=== PATIENT | female | born 1945 | race Caucasian/White ===

== ENCOUNTER 2016-12-17 08:25 | Inpatient (IN) | payer OTHER, MEDICARE ==
[~2016-12-17] VITALS: Ht 157.5 cm; Wt 71.5 kg
[~2016-12-17 08:25] MED LIST: AMLO10TA2 PO; ASPI81CH CHEW; CALC250T PO; METF1000 PO; OMEP10CA PO; ZETI10TA5 PO
--- NOTE | 2016-12-17 08:34 | MH ---
cc: ORION MCKEON M.D. DATE OF ADMISSION: 12/17/2016 ADMISSION DIAGNOSIS Left hip osteoarthritis. HISTORY This is a 71-year-old female with significant left hip arthritis. Investigative studies are consistent with extensive arthritis of the left hip. The patient has findings suggestive of avascular closes. Despite conservative care the patient is painful and symptomatic. She presents for surgical treatment. PAST MEDICAL HISTORY, SOCIAL HISTORY, FAMILY HISTORY, REVIEW OF SYSTEMS See attached notes. PHYSICAL EXAMINATION GENERAL: A 71-year-old female in moderate distress with her left hip. HEENT: Normocephalic, atraumatic. Pupils equal, round, reactive to light and accommodation. Extraocular motions intact. NECK: Supple. CHEST: Clear. HEART: Regular rate and rhythm. ABDOMEN: Soft, nontender with normoactive bowel sounds. MUSCULOSKELETAL EXAMINATION: Left hip - Pain with range of motion especially with internal and external rotation and mild flexion contracture. Neurologic and vascular examination is within normal limits. IMPRESSION Osteoarthritis left hip. PLAN Left total hip replacement plasty, direct anterior exposure. CONSENT There are risks with surgery including infection, bleeding, loss of motion, continued pain, need for further surgery, neurologic and vascular injury. The patient understands these issues and wishes to press on with surgery as outlined above. MD THIERRY Parker/JAIMEE /11:19 PM /8:29 AM
[2016-12-17] MEDS ORDERED: SODIUM CHLORID 0.9% 500 ML IV PRN (09:45)
[2016-12-17] MEDS ORDERED: POVIDONE IODINE 5% (ANTISEPSIS KIT) 4 APPLICATIONS EACH NARE PRN (09:45)
[2016-12-17] MEDS ORDERED: METOPROLOL TARTRATE 25 MG TAB PO PRN (09:45)
[2016-12-17] MEDS ORDERED: EXPAREL PERI-ARTICULAR INJECTION (TOTAL VOL. 60 ML) P-ARTICULR SCH ×2 (09:45)
[2016-12-17] MEDS ORDERED: VANCOMYCIN 1000 MG/NS 250 ML (for <70 kg) IV SCH ×2 (09:45)
[2016-12-17] MEDS ORDERED: INSULIN HUMAN REGULAR 1,000 UNITS/10 ML VIAL SQ PRN (09:45)
[2016-12-17] MEDS ORDERED: CHLORHEXIDINE GLUCONATE 2 % 1 PACK (2 CLOTHS) TOPICAL PRN (09:45)
[2016-12-17] MEDS ORDERED: LACTATED RINGER'S 1000 ML IV PRN (09:45)
[2016-12-17] MEDS ORDERED: POVIDONE IODINE 7.5% SCRUB 118 ML BOTTLE TOPICAL SCH (09:45)
[2016-12-17] MEDS ORDERED: ceFAZolin 2 GM PREMIX 50 ML IV SCH (09:45)
[2016-12-17] MEDS ORDERED: TRANEXAMIC ACID INJ 705 MG in SODIUM CHLORIDE 0.9% INJ 100 ML IV SCH (10:00)
[2016-12-17] MEDS ORDERED: GENTAMICIN SULFATE 80 MG/2 ML VIAL ONE (10:38)
[2016-12-17] MEDS ORDERED: NALOXONE HCL 0.4 MG/ML AMP IV PUSH PRN (13:30)
[2016-12-17] MEDS ORDERED: MISCELLANEOUS PHARMACY INFORMATION XX ONE (13:30)
[2016-12-17] MEDS ORDERED: ACETAMINOPHEN/HYDROcodone 325 MG/7.5 MG TAB PO PRN (13:30)
[2016-12-17] MEDS ORDERED: SODIUM CHLORIDE 0.9% FLUSH 5 ML FLUSH IVF PRN (13:30)
[2016-12-17] MEDS ORDERED: MORPHINE SULFATE 8 MG/ML INJ IM PRN (13:30)
[2016-12-17] MEDS ORDERED: Post-op Orders (for Pharmacy) MISC XX ONE (13:30)
[2016-12-17] MEDS ORDERED: MORPHINE SULFATE 30 MG/30 ML PCA IV SCH (13:30)
[2016-12-17] MEDS ORDERED: MISCELLANEOUS NURSING INFORMATION XX PRN (13:30)
--- NOTE | 2016-12-17 13:33 | PD.OP ---
cc: Usman Reyna MD Operative Report Date of Surgery: Dec 17, 2016 Preoperative Diagnosis: Osteoarthritis left hip, severe. Avascular necrosis left Postoperative Diagnosis: Same Procedure: Left total hip replacement arthroplasty, direct anterior exposure Anesthesia: Gen. Surgeon: Usman Reyna Operating Room Technologist(s): AMINATA Zamora Operation and Findings: EBL: 300cc INDICATION: This patient presents with significant hip pain related to severe inflammatory changes of the left hip and findings of significant flattening and dissolution of the femoral head, consistent with avascular necrosis. Despite extensive conservative care this patient continues to be painful and now presents for surgical treatment. NOTE: Chiquis Zamora PA-C was present for the entire surgical procedure as my plumber assistant. In my medical opinion her skill and care was necessary for the proper management of this patient. COMPONENTS: COMPANY: [employer] CUP: [place], 48, 100 series, gription surface LINER: Altrx 32, neutral STEM: [place], standard offset, size 13, hydroxyapatite-coated HEAD: Metal, 32, +5 neck length, 12/14 taper PROCEDURE: This patient was brought to the operating room and anesthetized in the supine position and positioned on the fracture table with both legs held extended. The left hip and leg was scrubbed with alcohol followed by Hibiclens followed by ChloraPrep and draped sterilely. Antibiotics were given within routine time window and a timeout was done. A 4 inch incision was made starting 2 cm distal and 2 cm lateral to the anterior superior iliac spine. The fascia adam was opened longitudinally. The interval between the fascia adam and the rectus was opened down to the capsule of the hip joint. Retractors were positioned allowing good visualization of the capsule. This was opened longitudinally and flaps were created. Stay sutures were utilized. Exposure was excellent. The neck was cut at the proper location using fluoroscopy as a guide. The head was removed. Deep retractors were positioned allowing good visualization of the acetabulum. Acetabulum was deepened down to the floor starting with a proper size reamer and reaming up to 47 mm. A trial was utilized. Fluoroscopy was used to check position and confirmed satisfactory alignment. The rim was reamed with a 48 mm reamer and the final cup was positioned in approximately 20 of anteversion and 40-45 of abduction. Position was satisfactory. A single hole eliminator was positioned followed by the final liner. The lifting hook was utilized. The leg was dropped to the floor, maximally externally rotated and brought across the midline. Retractors were positioned. A box osteotome was utilized followed by progressive broaching to the proper stem size. Trial reduction showed excellent alignment and fit. With 60 of external rotation the leg was dropped to the floor without evidence of anterior subluxation. The wound was irrigated. The final stem was inserted and was found to be very stable. The final reduction using the final head. Stability was as previously noted. Intraoperative x-rays were taken. The wound was irrigated copiously. Hemostasis was controlled. Local anesthesia was utilized. The capsule was repaired with #2 Tycron sutures. The fascia adam was repaired with running 0 PDS on a loop. Subcutaneous tissue was approximated with 2-0 Vicryl and skin with running intradermal 3-0 Vicryl followed by Steri-Strips. A sterile dressing was applied. The patient was awakened and taken to the recovery room in satisfactory condition. FINDINGS: There was severe erosion of the femoral head. We cut it on the back table and it had a classic appearance of avascular necrosis with a necrotic area of the central portion of the head which was loose. It was severe inflammatory changes was some evidence of erosion of acetabular bone stock. This forced us to placing the hip in a slightly high hip center position. This was accommodated for by femoral stem position. Usman Reyna MD Dec 17, 2016 13:33
[2016-12-17] MEDS ORDERED: GLUCAGON 1 MG/ML VIAL OTHER PRN (13:45)
[2016-12-17] MEDS ORDERED: DEXTROSE 50% IN WATER 50 ML VIAL(D50) IV PUSH PRN (13:45)
[2016-12-17] MEDS ORDERED: XARE10TA PO (13:46)
[2016-12-17] MEDS ORDERED: HYDR-3580 PO (13:46)
[2016-12-17] MEDS ORDERED: DO NOT ADM ANY ANTICOAGULANT DRUGS PRN (13:53)
[2016-12-17] MEDS: PCA - TOTAL MG MORPHINE DELIVERED PER SHIFT SCH ×2 (14:00→22:00)
[2016-12-17] MEDS ORDERED: *morphine SULFATE 8 MG/ML PERIprocedure ONLY ONE ×2 (14:03→14:21)
--- NOTE | 2016-12-17 14:58 | EKG ---
Date Performed: 12/17/2016 Time Performed: 09:01:05 PTAGE: 71 years EKG: Sinus rhythm LOW QRS VOLTAGE IN PRECORDIAL LEADS POSSIBLE RIGHT VENTRICULAR CONDUCTION DELAY BORDERLINE ECG NO PREVIOUS TRACING DOCTOR: [place] Interpretating Date/Time 12/17/2016 14:54:51
[2016-12-17] MEDS: LACTATED RINGER'S 1000 ML INJ 1,000 ML IV SCH ×3 (15:15→23:39)
[2016-12-17] MEDS ORDERED: DEXTROSE 50% IN WATER 50 ML SYRINGE IV PUSH PRN (15:15)
[2016-12-17] MEDS: INSULIN NovoLIN REGULAR SUPPLEMENTAL SCALE SQ SCH ×2 (17:00→20:43)
[2016-12-17 17:45] VITALS: BP 140/75; PULSE 85; RESP 18; TEMP 95.9; O2SAT 95
[2016-12-17] MEDS: metFORMIN HCL 500 MG TAB PO SCH (17:52)
[2016-12-17 18:56] VITALS: BP 155/93; PULSE 82; RESP 18; TEMP 97.2
--- NOTE | 2016-12-17 19:08 | RADRPT ---
EXAM DATE/TIME: 12/17/2016 12:17 [facility] COMPARISON: No previous studies available for comparison. INDICATIONS : Placement of total left hip. MEDICAL HISTORY : None. SURGICAL HISTORY : None. ENCOUNTER: Initial ACUITY: 1 day PAIN SCORE: Non-responsive. LOCATION: Left Hip. FINDINGS: Total hip arthroplasty is in place. The femoral and acetabular components appear intact. CONCLUSION: Intact total hip prosthesis for jacqueline. Ruslan Parr MD on December 17, 2016 at 19:06 Board Certified Radiologist. This report was verified electronically.
[2016-12-17 19:49] VITALS: O2SAT 95
[2016-12-17] MEDS: MAGNESIUM HYDROXIDE SUSP 30 ML CUP PO SCH (20:42)
[2016-12-17] MEDS: SENNOSIDES 8.6 MG TAB PO SCH (20:42)
[2016-12-17] MEDS: SODIUM CHLORIDE 0.9% FLUSH 5 ML FLUSH IVF SCH (20:43)
[2016-12-18] VITALS (7 sets, daily range): BP systolic 120–159; BP diastolic 58–78; PULSE 84–114; RESP 16–18; TEMP 97–99.1; O2SAT 92–99
[2016-12-18] MEDS: ACETAMINOPHEN/HYDROcodone 325 MG/7.5 MG TAB PO PRN ×4 (04:22→17:23)
[2016-12-18] MEDS: PCA - TOTAL MG MORPHINE DELIVERED PER SHIFT SCH ×2 (06:00→13:06)
[2016-12-18 07:23] LABS: HEMATOCRIT 29.7 % (35.0-46.0); REVIEW FLAG FINAL
[2016-12-18] MEDS: PANTOPRAZOLE SOD 20 MG DELAYED RELEASE TAB PO SCH (07:31)
[2016-12-18] MEDS: EZETIMIBE 10 MG TAB PO SCH (07:31)
[2016-12-18] MEDS: metFORMIN HCL 500 MG TAB PO SCH ×2 (07:31→17:53)
[2016-12-18] MEDS: MAGNESIUM HYDROXIDE SUSP 30 ML CUP PO SCH ×2 (07:35→20:44)
[2016-12-18] MEDS: INSULIN NovoLIN REGULAR SUPPLEMENTAL SCALE SQ SCH ×4 (07:36→20:39)
[2016-12-18] MEDS: SODIUM CHLORIDE 0.9% FLUSH 5 ML FLUSH IVF SCH ×2 (07:40→20:44)
--- NOTE | 2016-12-18 09:16 | HHI.DCPOC ---
Discharge Care Plan Diagnosis: (1) Avascular necrosis of bone of left hip (2) Osteoarthritis of left hip Your Health Problems Are: Incision/Drains Swelling Goals to Promote Your Health * To prevent worsening of your condition and complications * To maintain your health at the optimal level Directions to Meet Your Goals Take your medications as prescribed Follow your dietary instruction Follow activity as directed Keep your appointments as scheduled Take your immunizations and boosters as scheduled If your symptoms worsen call your PCP, if no PCP go to Urgent Care Center or Emergency Room Smoking is Dangerous to Your Health. Avoid second hand smoke Call the 24-hour hour crisis hotline for domestic abuse at Jane Del Castillo Dec 18, 2016 09:16
--- NOTE | 2016-12-18 09:19 | HHI.DS ---
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 CBC/BMP: 12/18/16 0528 Significant Findings Laboratory Tests Test 12/18/16 05:28 Hemoglobin 10.0 GM/DL (11.6-15.3) Hematocrit 29.7 % (35.0-46.0) Hospital Course Surgical treatment was performed on the day of admission without complication. She recovered well in PACU and was transferred to the orthopaedic floor. Pain was controlled with IV and oral medications. DVT prophylaxis was initiated pod# 1 with xarelto. She was compliant with physical therapy and all PRASHANTH restrictions. After 3 days she was found to be stable and discharged to a [place] [facility] facility. She was instructed to continue physical therapy, avoid dressing changes unless saturated, and to pursue a high fiber diet for 3- 5 days. She was given a prescriptions of xarelto 10mg and [place] 7.5mg to be filled outpatient Pt Condition on Discharge: Stable Discharge Disposition: Discharge to SNF Discharge Instructions Diet Instructions: Diabetic Diet Activities You Can Perform: Weight Bearing as [place] Activities to Avoid: Strenuous Activity Additional Activity Instruc.: Anterior PRASHANTH protocol New Medications: Adjustable Commode 3-in-1 (Adjustable Commode 3-in-1) 1 Mis Mis EA .ROUTE DIRECTED, #1 Walker with Front Wheels (Walker with Front Wheels) 1 Mis Mis EA .ROUTE DIRECTED, #1 0 Refills Hydrocodone-Acetaminophen (Hydrocodone-Acetaminophen) 7.5-325 mg Tab 1 TAB PO Q4H PRN for pain, #50 TAB Rivaroxaban (Xarelto) 10 Mg Tab 10 MG PO Q24H for Prevent Blood Clot, #25 TAB Continued Medications: Amlodipine (Amlodipine) 10 Mg Tab 10 MG PO DAILY for Blood Pressure Management, #30 TAB 0 Refills Calcium Citrate (Calcium Citrate) 250 Mg Calcium Tab 125 MG PO BID for Calcium Supplement, TAB 0 Refills Ezetimibe (Zetia) 10 Mg Tab 5 MG PO DAILY, #30 TAB 0 Refills Metformin (Metformin) 1,000 Mg Tab 1000 MG PO BIDPC for Blood Sugar Management, #60 TAB 0 Refills Omeprazole (Omeprazole) 10 Mg Cap 10 MG PO DAILY, #30 CAP 0 Refills Discontinued Medications: Aspirin (Aspirin) 81 Mg Chew 81 MG CHEW DAILY, TAB 0 Refills Jane Del Castillo Dec 18, 2016 09:19
[2016-12-18] MEDS ORDERED: WALKER WHEELS/F1 MIS (09:20)
[2016-12-18] MEDS ORDERED: ADJUSTABLE COMM1 MIS (09:20)
--- NOTE | 2016-12-18 11:58 | PD.ORT.PN ---
Subjective Subjective Remarks Doing well. Moderate left hip pain but controlled with IV and po meds. No complaints or radiating leg pain. Did well with PT this morning. Though she feels she is doing well she has no one at home to help her and is considering SNF. No complaints of CP, SOB or abd pain. Objective Vitals Vital Signs Date Time Temp Pulse Resp B/P (MAP) Pulse Ox O2 Delivery O2 Flow Rate FiO2 12/18/16 11:07 97.5 96 17 120/58 (78) 95 12/18/16 06:00 18 12/18/16 04:00 99.1 91 16 150/74 (99) 94 12/18/16 00:00 98.0 84 17 159/78 (105) 92 12/18/16 00:00 98.0 84 17 159/78 (105) 92 12/17/16 22:00 17 12/17/16 19:49 95 Nasal Cannula 2.00 12/17/16 18:56 97.2 82 18 155/93 (113) 12/17/16 17:45 95.9 85 18 140/75 (96) 95 12/17/16 16:45 97.8 79 16 163/81 (108) 95 Nasal Cannula 2 12/17/16 16:30 79 16 160/75 (103) 95 Nasal Cannula 2 12/17/16 16:00 77 15 143/70 (94) 95 Nasal Cannula 2 12/17/16 15:30 77 15 149/69 (95) 95 Nasal Cannula 2 12/17/16 15:15 15 12/17/16 15:00 76 15 155/75 (101) 95 Nasal Cannula 2 12/17/16 14:45 78 17 155/72 (99) 95 Nasal Cannula 2 12/17/16 14:30 76 16 160/78 (105) 95 Nasal Cannula 2 12/17/16 14:15 62 16 159/69 (99) 95 Nasal Cannula 2 12/17/16 14:00 54 16 143/64 (90) 95 Nasal Cannula 2 12/17/16 13:57 97.5 53 15 126/91 (103) 95 Nasal Cannula 2 I/O 12/17/16 12/17/16 12/17/16 12/18/16 12/18/16 12/18/16 07:00 15:00 23:00 07:00 15:00 23:00 Intake Total 1200 ml 958 ml 2083 ml Output Total 550 ml 0 ml Balance 650 ml 958 ml 2083 ml Intake Oral 720 ml 480 ml IV Total 238 ml 1603 ml Other 1200 ml Output Urine Total 450 ml 0 ml Estimated Blood Loss 100 ml # Voids 2 3 # Bowel Movements 0 0 Result Diagram: 12/18/16 0528 Procedures Left total hip arthroplasty, direct anterior approach Objective Remarks Sitting up in chair NAD VSS LLE Hip dressing c/d/i, no significant drainage, no erythema, mild swelling thigh supple, neg homans sign +motor at distal, +sens, +nvi Assessment & Plan Ortho Post Op Day #: 1 Problem List: (1) Osteoarthritis of left hip ICD Codes: M16.12 - Unilateral primary osteoarthritis, left hip Qualifiers: Qualified Codes: M16.12 - Unilateral primary osteoarthritis, left hip (2) Avascular necrosis of bone of left hip ICD Codes: 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 D/C [facility] - change to po pain meds. On norco 7.5mg Hold dressing changes. Do not change unless saturated. PT - WBAT LLE. Anterior prashanth precautions. Walker as needed. Xarelto 10mg qd for 4 weeks. D/C planning, SNF friday. DME written. Jane Del Castillo Dec 18, 2016 11:58
[2016-12-18] MEDS: RIVAROXABAN 10 MG TAB PO SCH (13:06)
[2016-12-18] MEDS: LACTATED RINGER'S 1000 ML INJ 1,000 ML IV SCH (20:39)
[2016-12-18] MEDS: SENNOSIDES 8.6 MG TAB PO SCH (20:44)
[2016-12-18] MEDS: BISACODYL EC 5 MG TABEC PO SCH (20:44)
[2016-12-19] VITALS: BP 153/69; PULSE 100; RESP 20; TEMP 99.5; O2SAT 93
[2016-12-19 08:00] VITALS: BP 149/70; PULSE 110; RESP 18; TEMP 97; O2SAT 94
[2016-12-19] MEDS: INSULIN NovoLIN REGULAR SUPPLEMENTAL SCALE SQ SCH ×4 (08:00→21:50)
[2016-12-19 08:26] LABS: HEMATOCRIT 31.2 % (35.0-46.0); REVIEW FLAG FINAL
[2016-12-19 09:00] VITALS: O2SAT 91
[2016-12-19] MEDS: MAGNESIUM HYDROXIDE SUSP 30 ML CUP PO SCH ×2 (09:00→21:49)
[2016-12-19] MEDS: SODIUM CHLORIDE 0.9% FLUSH 5 ML FLUSH IVF SCH ×2 (09:00→21:49)
[2016-12-19] MEDS: metFORMIN HCL 500 MG TAB PO SCH ×2 (09:29→17:36)
[2016-12-19] MEDS: PANTOPRAZOLE SOD 20 MG DELAYED RELEASE TAB PO SCH (09:30)
[2016-12-19] MEDS: EZETIMIBE 10 MG TAB PO SCH (09:30)
[2016-12-19] MEDS: ACETAMINOPHEN/HYDROcodone 325 MG/7.5 MG TAB PO PRN (10:15)
[2016-12-19 12:00] VITALS: BP 118/60; PULSE 100; RESP 18; TEMP 97.8; O2SAT 91
[2016-12-19] MEDS: RIVAROXABAN 10 MG TAB PO SCH (12:48)
--- NOTE | 2016-12-19 14:15 | PD.ORT.PN ---
Subjective Subjective Remarks She continues to do well though is feels 'kind of cold'. She has been using 2- 3 blankets when in bed. She has not complaints in regards to her legs. She denies any new chest pain, fever, shortness of breath or abd pain. Objective Vitals Vital Signs Date Time Temp Pulse Resp B/P (MAP) Pulse Ox O2 Delivery O2 Flow Rate FiO2 12/19/16 10:31 Room Air 12/19/16 09:00 91 21 12/19/16 08:00 97.0 110 18 149/70 (96) 94 12/19/16 05:03 94 Nasal Cannula 2.00 12/19/16 01:04 93 Nasal Cannula 3.00 12/19/16 00:00 99.5 100 20 153/69 (97) 93 12/18/16 19:25 98.8 93 18 154/69 (97) 92 12/18/16 16:37 98.1 99 18 139/66 (90) 99 I/O 12/18/16 12/18/16 12/18/16 12/19/16 12/19/16 12/19/16 07:00 15:00 23:00 07:00 15:00 23:00 Intake Total 2083 ml 600 ml Balance 2083 ml 600 ml Intake Oral 480 ml 600 ml IV Total 1603 ml # Voids 3 3 4 # Bowel Movements 0 1 1 Result Diagram: 12/19/16 0730 Procedures Left total hip arthroplasty, direct anterior approach Objective Remarks Laying in bed, NAD VSS LLE Hip dressing c/d/i, no new drainage, no erythema, mild swelling thigh supple, neg homans sign +motor at distal, +sens, +nvi Assessment & Plan Ortho Post Op Day #: 2 Problem List: (1) Osteoarthritis of left hip ICD Codes: M16.12 - Unilateral primary osteoarthritis, left hip Qualifiers: Qualified Codes: M16.12 - Unilateral primary osteoarthritis, left hip (2) Avascular necrosis of bone of left hip ICD Codes: 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 Ortho stable. PO pain meds norco 7.5mg Hold dressing changes. Do not change unless saturated. PT - WBAT LLE. Anterior prashanth precautions. Walker as needed. Xarelto 10mg qd for 4 weeks. D/C planning, SNF tomorrow. DME written. Jane Del Castillo Dec 19, 2016 14:15
[2016-12-19] MEDS: LACTATED RINGER'S 1000 ML INJ 1,000 ML IV SCH (15:29)
[2016-12-19 16:00] VITALS: BP 126/65; PULSE 114; RESP 18; TEMP 98.1; O2SAT 93
[2016-12-19 20:00] VITALS: BP 139/67; PULSE 100; RESP 16; TEMP 99.2; O2SAT 94
[2016-12-19] MEDS: SENNOSIDES 8.6 MG TAB PO SCH (21:49)
[2016-12-19] MEDS: BISACODYL EC 5 MG TABEC PO SCH (21:49)
[2016-12-20] VITALS: BP 149/66; PULSE 99; RESP 20; TEMP 98.2; O2SAT 93
[2016-12-20] MEDS: LACTATED RINGER'S 1000 ML INJ 1,000 ML IV SCH (03:59)
--- NOTE | 2016-12-20 07:22 | PD.ORT.PN ---
Subjective Subjective Remarks Patient comfortable Objective Vitals Vital Signs Date Time Temp Pulse Resp B/P (MAP) Pulse Ox O2 Delivery O2 Flow Rate FiO2 12/20/16 00:00 98.2 99 20 149/66 (93) 93 12/19/16 21:33 21 12/19/16 20:00 99.2 100 16 139/67 (91) 94 12/19/16 16:00 98.1 114 18 126/65 (85) 93 12/19/16 12:00 97.8 100 18 118/60 (79) 91 12/19/16 10:31 Room Air 12/19/16 09:00 91 21 12/19/16 08:00 97.0 110 18 149/70 (96) 94 I/O 12/19/16 12/19/16 12/19/16 12/20/16 12/20/16 12/20/16 07:00 15:00 23:00 07:00 15:00 23:00 Intake Total 600 ml 480 ml 480 ml Balance 600 ml 480 ml 480 ml Intake Oral 600 ml 480 ml 480 ml # Voids 4 4 2 3 # Bowel Movements 1 1 2 Result Diagram: 12/19/16 0730 Procedures Left total hip arthroplasty, direct anterior approach Objective Remarks Laying in bed, NAD VSS LLE Hip dressing c/d/i, no new drainage, no erythema, mild swelling thigh supple, neg homans sign +motor at distal, +sens, +nvi Assessment & Plan Ortho Post Op Day #: 3 Problem List: (1) Osteoarthritis of left hip ICD Codes: M16.12 - Unilateral primary osteoarthritis, left hip Qualifiers: Qualified Codes: M16.12 - Unilateral primary osteoarthritis, left hip (2) Avascular necrosis of bone of left hip ICD Codes: 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 Ortho stable. PO pain meds norco 7.5mg Hold dressing changes. Do not change unless saturated. PT - WBAT LLE. Anterior prashanth precautions. Walker as needed. Xarelto 10mg qd for 4 weeks. SNF today DME written. Jonathan Morales MD Dec 20, 2016 07:22
[2016-12-20 08:00] VITALS: BP 125/65; PULSE 105; RESP 18; TEMP 96.7; O2SAT 93
[2016-12-20] MEDS: INSULIN NovoLIN REGULAR SUPPLEMENTAL SCALE SQ SCH (08:00)
[2016-12-20] MEDS: MAGNESIUM HYDROXIDE SUSP 30 ML CUP PO SCH (08:17)
[2016-12-20] MEDS: metFORMIN HCL 500 MG TAB PO SCH (08:17)
[2016-12-20] MEDS: SODIUM CHLORIDE 0.9% FLUSH 5 ML FLUSH IVF SCH (08:17)
[2016-12-20] MEDS: ACETAMINOPHEN/HYDROcodone 325 MG/7.5 MG TAB PO PRN (08:17)
[2016-12-20] MEDS: EZETIMIBE 10 MG TAB PO SCH (08:17)
[2016-12-20] MEDS: PANTOPRAZOLE SOD 20 MG DELAYED RELEASE TAB PO SCH (08:18)
== END 2016-12-20 10:30 | DRG 470 ==
LOC: HSDI 08:25 → N06A 17:46
PROVIDERS: ADMIT Orthopaedic Surgery Orthopaedic Surgery of the Spine; ATTEND Orthopaedic Surgery Orthopaedic Surgery of the Spine
PROC: 0SRB02A Replacement of Left Hip Joint with Metal on Polyethylene Synthetic Substitute, Uncemented, Open Approach (ICD-10-PCS; principal; 2016-12-17 11:17)
DX: M16.12 Unilateral primary osteoarthritis, left hip (principal); E11.22 Type 2 diabetes mellitus with diabetic chronic kidney disease; N18.3 Chronic kidney disease, stage 3 (moderate); M87.9 Osteonecrosis, unspecified; Z79.84 Long term (current) use of oral hypoglycemic drugs; I12.9 Hypertensive chronic kidney disease with stage 1 through stage 4 chronic kidney disease, or unspecified chronic kidney disease; M81.0 Age-related osteoporosis without current pathological fracture; E78.5 Hyperlipidemia, unspecified; K21.9 Gastro-esophageal reflux disease without esophagitis; Z86.73 Personal history of transient ischemic attack (TIA), and cerebral infarction without residual deficits; Z87.891 Personal history of nicotine dependence
CPT/HCPCS: 73502; 76000; 82948; 85014; 85018; 86850; 86900; 86901; 86920; 93005; 94150; C9290; J0690; J1580; J2270; J3370; J7050; J7120